=== PATIENT | female | born 1990 | race Caucasian/White ===

== ENCOUNTER 2019-12-05 17:28 | Emergency (ER) | payer BC, OTHER ==
[~2019-12-05] VITALS: Ht 175.3 cm; Wt 68.2 kg
[2019-12-05 17:31] VITALS: BP 126/73
[2019-12-05] MEDS ORDERED: ALBU8.5H8 INH (17:52)
[2019-12-05] MEDS ORDERED: BENZ-16 PO (17:52)
--- NOTE | 2019-12-05 18:03 | NUR ---
Patient swabbed for COVID-19 and swab sent to lab.
== END 2019-12-05 18:06 | disposition home or self-care (01) ==
LOC: ER 17:29 → EDBD 17:29 → ER 18:06
DX: R05 Cough (principal); Z20.828 Contact with and (suspected) exposure to other viral communicable diseases; R06.02 Shortness of breath; Z79.899 Other long term (current) drug therapy
CPT/HCPCS: 36415; 87635; 99283